=== PATIENT | male | born 1950 | race Caucasian/White ===

== ENCOUNTER → 2018-01-29 | Outpatient (CLI) | payer BC ==
[~2018-01-29] MED LIST: ASPI81TA50 PO; ATORVASTATIN CA80 MG PO; CHOL100013 PO; DIPH25CA58 PO; IOHEXOL 180 MG/ML 10 ML VIAL. ONE; LIDOCAINE 1% PF 2 ML VIAL. ONE; MELO15TA23 PO; METH-38 PO; METO25TA4 PO; NAPR-514 PO; NITR0.4T SL; OXYC-323 PO; POTA99TA3 PO; RANI150T21 PO; lidoderm patch TOP; methylPREDNISolone ACETATE 40 MG/ML VIAL. ONE; methylPREDNISolone ACETATE 80 MG/ML VIAL. ONE
--- NOTE | 2018-01-30 00:14 | PAIN ---
DATE OF SERVICE: 01/29/2018 INITIAL CONSULTATION FOR PAIN CLINIC CHIEF COMPLAINT: Low back and right lower extremity pain. HISTORY OF PRESENT ILLNESS: This is a 67-year-old male who presents with history of pain about 10 years plus. No specific injury or action he is aware of but has had significant pain in the low back and into the right leg, mostly in the posterior gluteus, posterior thigh for many years and worse over the past year or so but not debilitating. The patient reports he has had chiropractic treatment in the past as well as physical therapies and does exercise currently but has not decreased the pain significantly. The patient reports he only has chiropractic treatments and it seemed to help but within a day or two, the pain has returned. The patient reports no loss of motor function but significant fatigability of the right leg with walking or standing, better with sitting or lying down. The patient reports it can awaken him from sleep multiple times at night but not every night. The patient reports it does not affect his bowel or bladder control significantly. No incontinence, some increased frequency as well with the pain but the patient reports it does affect his ability to walk significantly. He is using a cane holding in his left hand and he has it with him today. The patient tried methocarbamol as well as meloxicam, both of which do decrease the pain but only by about 10%-20%. 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 The patient rates his disability rate from 0-10, 10 being the worst, is at 9 with family and home responsibilities, recreation, occupation, 8 with self-care and life support activities, 10 with sexual behavior and 7 with social activity. PAST MEDICAL HISTORY: Significant for hypertension, cataracts, arthritis, gastroesophageal reflux, obesity, coronary artery disease, mitral valve regurgitation and abdominal aneurysm. PAST SURGICAL HISTORY: Previous surgeries include left shoulder surgery in 2006, carpal tunnel repair on the right and mitral valve repair as well. The patient reports he is currently on disability since 2011 as well. CURRENT MEDICATIONS: Include diphenhydramine, atorvastatin, daily baby aspirin, allopurinol, ranitidine, vitamin D, potassium, oxycodone, nitroglycerin, naproxen, metoprolol, meloxicam, lidocaine patches and methocarbamol. ALLERGIES: The patient is allergic to HYDROCODONE. FAMILY HISTORY: Significant for no major medical conditions or diseases aware of. SOCIAL HISTORY: The patient does not smoke, has never smoked; does not drink alcohol and does not use any illegal or illicit or recreational drugs. He is and lives with his spouse. No children living at home. The patient was locally [place], [place]. REVIEW OF SYSTEMS: The patient's review of systems is positive for those items mentioned in history of present illness. All systems reviewed and otherwise negative. It is complete, full and well documented on the patient's chart. PHYSICAL EXAMINATION: VITAL SIGNS: The patient's blood pressure is 149/83, pulse 63, respirations 18 and temperature 97.5 degrees Fahrenheit. Height is 5 feet 8 inches and weight is 256 pounds. GENERAL: The patient is awake, alert, oriented, appropriate and very pleasant demeanor. HEENT: Head is normocephalic and atraumatic. Extraocular movements intact and symmetrical. Oral cavity: Mucous membranes moist and pink. Dentition is intact. NECK: Shows anterior throat supple without palpable lymphadenopathy noted. Swallow reflex symmetrical. CHEST: Shows normal with inspection. Breath sounds clear to auscultation bilaterally. HEART: Shows S1 and S2 clear. No murmurs auscultated. ABDOMEN: Soft, nontender and nondistended. No palpable organomegaly is noted. No rebound or guarding demonstrated. BACK: Shows spine grossly in the midline, slight exaggeration of the thoracic kyphosis and some minor flattening of the lumbar lordotic curvature. Lumbar paraspinous muscle shows symmetrical on inspection, with palpation shows some [id number] tenderness bilaterally diffusely throughout the upper, middle and lower distribution of the paraspinous muscles but without radiation, without asymmetry. No tenderness over the spinous processes, sacrum or sacroiliac regions. The patient has good rotational motion with some minor tenderness with right rotation and extension but not with forward flexion or left lateral rotation past 10 degrees. The patient's lower extremities show deep tendon reflexes at 1+ in the patellar and tendo-calcaneus tendons. Motor exam is strong with 5/5 dorsiflexion, extension, quadriceps and hamstring flexion. Peripheral pulses are 1+ posterior tibia. No peripheral edema is noted bilaterally. EXTREMITIES: Lower extremities are warm and dry to touch, equal in color and appearance. Gaenslen's and Benigno's maneuvers are negative bilaterally. Straight leg raise noted to be negative bilaterally as well. The patient is able to stand, stand on his toes without difficulty or significant loss of balance, walks with a slight shuffling gait, does not appear to favor the right or left lower extremity significantly and again has a cane using his left hand. SKIN: He is warm and dry, good turgor. No edema, sores, rashes or bruising. IMPRESSION: 1. This is a 67-year-old male with long history of low back pain, now over the past year or so with some pain in the right lower extremity as well without recent specific injury or accident. 2. CT scan of the lumbar spine as noted. 3. Arthritis. 4. Hypertension. 5. Cardiac valvular disease. PLAN: Options were discussed with the patient including conservative medical management, physical therapy, interventional technique. He would like to pursue interventional techniques. We discussed a lumbar epidural steroid injection using description as well as anatomical models to describe the procedure. Risks were then discussed including, but not limited to bleeding, infection, possibility of epidural hematoma and subsequent neurological compromise, dural puncture, headaches, spinal cord and/or nerve damage, side effects of steroid medication and poor results regarding pain control. The patient understands and wished to proceed. The patient will return to the clinic in approximately 2 weeks for followup, was counseled as to return appointment, activity level and side effects to be aware of. DIAGNOSES: Lumbar radiculopathy with lumbar spinal stenosis, lumbar degenerative disk disease and lumbar spondylosis. PROCEDURES: Lumbar epidural steroid injection, translaminar approach, L5-S1 level using C-arm fluoroscopic guidance under sterile prep and drape using local anesthetic. MEDICATION INJECTED: A total of 120 mg Depo-Medrol plus 10 mL of preservative-free normal saline and 2 mL of Isovue for contrast. CONDITION AT DISCHARGE: Stable. The patient tolerated the procedure well and had no complications. DESTINI POWER MD DR: MAIRA/tanmay JOB#: [id number] / [id number] Carson Mcclendon MD
== END | disposition home or self-care (01) ==
LOC: PNCL 08:33
PROVIDERS: ATTEND Anesthesiology
DX: M51.16 Intervertebral disc disorders with radiculopathy, lumbar region (principal); M48.061 Spinal stenosis, lumbar region without neurogenic claudication; M47.26 Other spondylosis with radiculopathy, lumbar region; I10 Essential (primary) hypertension; M19.90 Unspecified osteoarthritis, unspecified site; K21.9 Gastro-esophageal reflux disease without esophagitis; E66.9 Obesity, unspecified; I25.10 Atherosclerotic heart disease of native coronary artery without angina pectoris; I34.0 Nonrheumatic mitral (valve) insufficiency; I71.4 Abdominal aortic aneurysm, without rupture; Z98.890 Other specified postprocedural states; Z79.82 Long term (current) use of aspirin; Z79.899 Other long term (current) drug therapy; Z88.5 Allergy status to narcotic agent
CPT/HCPCS: 62323; J1030; J1040; Q9965

== ENCOUNTER → 2018-02-15 | Outpatient (CLI) | payer BC ==
[~2018-02-15] MED LIST changes: -LIDOCAINE 1% PF 2 ML VIAL. ONE
--- NOTE | 2018-02-15 10:52 | PAIN ---
DATE OF SERVICE: 02/15/2018 DIAGNOSES: Lumbar radiculopathy with lumbar spinal stenosis, lumbar degenerative disk disease and lumbar spondylosis. HISTORY OF PRESENT ILLNESS: The patient is a 67-year-old male who returns for followup status post lumbar epidural steroid injection x 1. The patient reports about 80% improvement for 4-5 days after the injection, did very well, reports that he feels he "overdid it," was feeling better, was increasing his activity with greater ease and comfort, but he feels he may have done too much as his back is aching. He was also shoveling some snow this morning, which caused back to hurt as well, as is his right leg. The patient reports he is sleeping well at night, wakes him from sleep occasionally, but not every night. He usually reposition and get back to sleep. The patient reports feeling much better distance walking, able to return to household activities, working activities, traveling with much greater ease and comfort for the first few days. The patient reports again he may have overdone it. He was doing some yard work and things he had not done in a while because the back was feeling better and now is becoming more painful across the low back into the right posterior gluteus, posterior thigh. He rates it 8 on a scale of 10 at its worst, 5 on average and 3 at its least and is a 5 today. The patient reports it is aching and tight, shooting occasionally, mostly in the low back. The patient reports no new motor or sensory deficits, no new bowel or bladder incontinence or other complaints. PHYSICAL EXAMINATION: VITAL SIGNS: The patient's blood pressure 124/84, pulse 63, respirations are 18, temperature 98.2 degrees Fahrenheit, height 5 feet 8 inches and weight is 254 pounds. GENERAL: The patient is awake, alert, oriented, appropriate, very pleasant demeanor. HEENT: Head is normocephalic, atraumatic. Extraocular movements intact and symmetrical. Oral cavity: Mucous membranes are moist and pink. Dentition is intact. NECK: Shows anterior throat supple without palpable lymphadenopathy noted. Swallow reflex is symmetrical. CHEST: Shows normal with inspection. Breath sounds are clear to auscultation bilaterally. HEART: Shows S1,S2 clear. No murmurs auscultated. ABDOMEN: Obese, soft, nontender, nondistended. No palpable organomegaly is noted. No rebound or guarding demonstrated. BACK: Shows spine grossly in the midline. Normal appearing thoracic kyphosis, some minor flattening of lumbar lordotic curvature. Lumbar paraspinous muscle shows symmetrical on inspection, with palpation shows some moderate tenderness, but only diffusely without radiation. The patient has good rotational motion of lumbar spine, both laterally as well as extension and flexion, with some minor tenderness with extension of the right low back, but not on the left. It is nontender with forward flexion at 45 degrees. EXTREMITIES: The patient's lower extremities show deep tendon reflexes 1+ in the patellar and tendo-calcaneus tendons. Motor exam, 5/5 on dorsiflexion, extension, quadriceps and hamstring flexion. Peripheral pulses are 1+ posterior tibia. No peripheral edema is noted bilaterally. Options were discussed with the patient. The patient's old chart was reviewed as his current medication regimen updated. Current review of systems updated today as well. We will proceed with a second in a series of lumbar epidural steroid injection today with fluoroscopic guidance. Risks were again discussed including, but not limited to bleeding, infection, possibility of epidural hematoma, subsequent neurological compromise, dural puncture, headaches, spinal cord and/or nerve damage, side effects of steroid medication and poor results regarding pain control. The patient understands and wished to proceed. The patient to return to clinic in approximately 2 weeks for followup, was counseled as to return appointment, activity level and side effects to be aware of. DIAGNOSES: Lumbar radiculopathy with lumbar spinal stenosis, lumbar degenerative disk disease, lumbar spondylosis. PROCEDURE: Lumbar epidural steroid injection, translaminar approach at L5-S1 level using C-arm fluoroscopic guidance under sterile prep and drape using local anesthetic. MEDICATION INJECTED: A total of 120 mg Depo-Medrol, plus 10 mL of preservative-free normal saline and 2 mL of Isovue for contrast. CONDITION AT DISCHARGE: Stable. The patient tolerated the procedure well, had no complications. DESTINI POWER MD DR: MAIRA/tanmay JOB#: [id number] / [id number]
== END | disposition home or self-care (01) ==
LOC: PNCL 09:21
PROVIDERS: ATTEND Anesthesiology
DX: M51.16 Intervertebral disc disorders with radiculopathy, lumbar region (principal); M48.061 Spinal stenosis, lumbar region without neurogenic claudication; M47.26 Other spondylosis with radiculopathy, lumbar region; Z88.6 Allergy status to analgesic agent
CPT/HCPCS: 62323; J1030; J1040; Q9965